=== PATIENT | male | born 1965 | race Caucasian/White ===

== ENCOUNTER 2017-06-08 09:02 | Emergency (ER) | payer OTHER ==
[2017-06-08 09:13] VITALS: BP 157/86; PULSE 79; TEMP 98.2; BMI 25.0
--- NOTE | 2017-06-08 10:00 | PDOC ---
History of Present Illness - General Chief Complaint: Injury Stated Complaint: RT HAND INJURY Time Seen by Provider: 06/08/17 09:31 History Source: Patient Exam Limitations: No Limitations - History of Present Illness Initial Comments: 06/08/17 09:59 c/o right hand injury yesterday at work hit a metal bar with the back of his right hand while opening a sliding door. pt had swollen hand yesterday improved with ice. pt is right hand dominant. Past History - Past Medical History Allergies/Adverse Reactions: Allergies Allergy/AdvReac Type Severity Reaction Status Date / Time levofloxacin [From Levaquin] Allergy Difficulty Verified 06/08/17 09:13 Breathing Home Medications: Ambulatory Orders NK [No Known Home Medication] 06/08/17 COPD: No Hypercholesterolemia: Yes Kidney Stones: Yes - Suicide/Smoking/Psychosocial Hx Smoking History: Never smoked Hx Alcohol Use: Yes (SOCILA) Drug/Substance Use Hx: No *Physical Exam - Vital Signs Last Vital Signs Temp Pulse Resp BP Pulse Ox 98.2 F 79 20 157/86 98 06/08/17 09:09 06/08/17 09:09 06/08/17 09:09 06/08/17 09:09 06/08/17 09:09 - Physical Exam General Appearance: Yes: Nourished, Appropriately Dressed HEENT: positive: EOMI, SUMAYA Extremity: positive: Tender (dorsal aspect right hand at base of second third digits, nv intact FROM no tendon involvement , minimal swelling ) Integumentary: positive: Normal Color, Dry, Warm Neurologic: positive: Fully Oriented, Alert, Normal Mood/Affect, Normal Response , Motor Strength 5/5 ED Treatment Course - RADIOLOGY Radiology Studies Ordered: Category Date Time Status HAND- RIGHT [RAD] Stat Radiology 06/08/17 09:31 Completed Medical Decision Making - Medical Decision Making 06/08/17 10:09 cc: hand injury yesterday with swelling improved with ice will xray to r/o fracture pt has apt with his orthopedist tuesday pt is right hand dominant has FROM of all 5 digits nv intact *DC/Admit/Observation/Transfer Diagnosis at time of Disposition: Contusion, hand Qualifiers: Encounter type: initial encounter Laterality: right Qualified Code(s): S60.221A - Contusion of right hand, initial encounter - Discharge Dispostion Disposition: HOME Condition at time of disposition: Good - Referrals Referrals: jAay Wilcox [Primary Care Provider] - - Patient Instructions Additional Instructions: follow with your orthopedist as planned ice every 2hrs for 15 minutes take tylenol or advil for pain as directed - Post Discharge Activity Forms/Work/School Notes: Back to Work
== END 2017-06-08 10:13 | disposition home or self-care (01) ==
LOC: JERFT 09:02
DX: S60.221A Contusion of right hand, initial encounter (principal); W22.8XXA Striking against or struck by other objects, initial encounter; Y93.89 Activity, other specified; Y92.9 Unspecified place or not applicable
CPT/HCPCS: 73130-TC-RT; 99281-25